=== PATIENT | male | born 1950 | race Caucasian/White ===

== ENCOUNTER 2016-06-21 08:39 | Day surgery (SDC) | payer OTHER ==
[2016-06-21] MEDS ORDERED: fentaNYL 100 MCG/2 ML INJ ONE ×2 (09:30→10:48)
[2016-06-21] MEDS ORDERED: MIDAZOLAM 2 MG/2 ML VIAL ONE ×2 (09:30→10:48)
== END 2016-06-21 12:15 | disposition home health service (06) ==
LOC: FIMAGING 08:39
PROVIDERS: ATTEND Specialist
PROC: 02HV33Z Insertion of Infusion Device into Superior Vena Cava, Percutaneous Approach (ICD-10-PCS; principal; 2016-06-21 11:22)
DX: Z45.2 Encounter for adjustment and management of vascular access device (principal); C61 Malignant neoplasm of prostate; C77.5 Secondary and unspecified malignant neoplasm of intrapelvic lymph nodes
CPT/HCPCS: C1750; J2250; J3010

== ENCOUNTER 2016-07-25 10:59 | Day surgery (SDC) | payer OTHER ==
[2016-07-25] MEDS ORDERED: ONDANSETRON 4 MG/2 ML VIAL ONE (11:39)
[2016-07-25] MEDS ORDERED: FLUMAZENIL 0.5 MG/5 ML MDV IVP ONE (11:52)
[2016-07-25] MEDS ORDERED: NALOXONE HCL 0.4 MG/ML INJ ONE (11:53)
[2016-07-25] MEDS ORDERED: fentaNYL 100 MCG/2 ML INJ ONE (11:53)
[2016-07-25] MEDS ORDERED: MIDAZOLAM 2 MG/2 ML VIAL ONE (11:54)
[2016-07-25] MEDS ORDERED: LIDOCAINE 1% 30 ML SDV ONE (13:20)
== END 2016-07-25 13:57 | disposition home or self-care (01) ==
LOC: FIMAGING 10:59
PROVIDERS: ATTEND Specialist
PROC: 02PY33Z Removal of Infusion Device from Great Vessel, Percutaneous Approach (ICD-10-PCS; principal; 2016-07-25 13:18)
DX: C61 Malignant neoplasm of prostate (principal)
CPT/HCPCS: J2250; J2310; J2405; J3010